=== PATIENT | female | born 1975 | race Caucasian/White ===

== ENCOUNTER 2017-04-29 07:22 | Inpatient (IN) | payer BC ==
[~2017-04-29] VITALS: Ht 160 cm; Wt 116.1 kg
[2017-04-29] VITALS (8 sets, daily range): BP systolic 111–159; BP diastolic 51–92
--- NOTE | ~2017-04-29 | PR ---
[place], [place] PROGRESS NOTE NAME: SAMMY DELUNA [facility] #: [id number] UNIT #: [id number] ROOM: 529 DOCTOR: FUNMI CONWAY MD,SHERRILL BIRTHDATE: [birth year] DOS: 05/02/2017 PULMONARY FOLLOWUP SUBJECTIVE: She has been noted with reduction of respiratory symptoms of coughing and wheezing. Denies symptoms of chest pain. OBJECTIVE: VITAL SIGNS: For the patient which were recorded show the temperature noted as normal, respiratory rate 20, heart rate 89, blood pressure 133/88. Pulse oxygen saturation on room air 92% saturation. HEENT: Examination shows no acute change. NECK: Supple. CARDIOVASCULAR: S1, S2 audible. LUNGS: Moderate decreased breath sounds without any wheezing or crackles. ABDOMEN: Soft, nontender. LABORATORY DATA: CBC: WBC count 20.4, hemoglobin 10.3, hematocrit 32.5, platelet count 413,000, 81% segmented neutrophils noted. BMP: BUN 27, creatinine was normal, glucose 174. Remaining electrolytes were normal. IMPRESSION: 1. Progressive resolution and improvement was noted with patient's acute exacerbation of bronchial asthma at this time. 2. Leukocytosis, most likely induced by the corticosteroids. PLAN OF TREATMENT: Consider home discharge whenever is necessary from the pulmonary standpoint. Tapering dose of prednisone could be used. Oral antibiotics to be given, short-acting bronchodilators, outpatient assessment was recommended after discharge from the hospital. SHERRILL CHOUDHARY MD CM:PNTRANS [id number] SHERRILL CONWAY MD 05/02/17 1136 interface
--- NOTE | ~2017-04-29 | CON ---
[place], [place] REPORT OF CONSULTATION NAME: SAMMY DELUNA [facility] #: [id number] UNIT #: [id number] ROOM: 529 DOCTOR: SHERRILL SOUSA MD BIRTHDATE: [birth year] DOS: 04/29/2017 REASON FOR CONSULTATION: Assess the patient for possibility of bronchial asthma. HISTORY OF PRESENT ILLNESS: A 41-year-old white female without any known pulmonary disease. The patient developed symptoms of increased chest congestion and coughing after cold few days ago. The patient's symptoms have been noted significant worsening related with excessive wheezing as well, which progressed gradually. The patient also noted cough with yellowish sputum expectoration, some of them blood-tinged because of excessive severe cough. She presented to the hospital and admitted to the hospital under hospitalist service on 04/29/2017 for the assessment of the current symptom. The patient denies any symptoms of hemoptysis. ____ was still noted as severe that has been improving at this time. There were no symptoms of chest pain. Hemoptysis noted, only minimal sputum expectoration seemed to be better at the present time. REVIEW OF SYSTEMS: CONSTITUTIONAL: Denies symptoms of fever or chills. EYES: Denies any burning, redness, or tenderness. EARS, NOSE, THROAT: Sore throat noted with some postnasal drainage, nasal congestion. CARDIOVASCULAR: Denies anginal pain, edema, pain of the lower extremities. GASTROINTESTINAL: Denies dysphagia, nausea, vomiting, diarrhea, abdominal pain, hematemesis, melena or hematochezia. SKIN: Denies lesions or rashes. GENITOURINARY: Denies dysuria, suprapubic pain, hematuria. MUSCULOSKELETAL: Denies acute joint pain, redness, or tenderness. CENTRAL NERVOUS SYSTEM: No dizziness, headache, or diplopia. Remaining systems were reviewed with the patient, they were noted all negative. PAST MEDICAL HISTORY: 1. Type 1 diabetes mellitus. 2. Essential hypertension. 3. Hyperlipidemia. 4. Hypothyroidism. 5. Morbid obesity. 6. Polycystic ovarian syndrome. 7. Past history of vertigo. SOCIAL HISTORY: The patient has one child. Denies any history of alcohol, tobacco or illicit drug use. PAST SURGICAL HISTORY: 1. . 2. Tubal ligation. 3. Tonsillectomy. FAMILY HISTORY: History of stroke in the mother and father and diabetes in the [place], [place] RE[facility]ATION [facility]: [id number] UNIT #: [id number] ROOM: 529 DOCTOR: FUNMI CONWAY MD,SHERRILL BIRTHDATE: [birth year] mother. HOME MEDICATIONS: 1. Use of Humalog insulin: 2. Synthroid. DRUG ALLERGIES: 1. Lipitor. 2. Keflex. 3. NovoLog. PHYSICAL EXAMINATION: GENERAL: This is a 41-year-old female who has been currently noted without any acute distress at this time. The patient's height was noted as 5 feet 3 inches, weight of 256 pounds, BMI 45.3. VITAL SIGNS: Show a normal temperature, respiratory rate 20-18, heart rate of 79-100, blood pressure 119/57-128/60. Pulse oxygen saturation noted on room air as 99% saturation. HEENT: Shows head was atraumatic. Eyes, nonicterus. NECK: Supple. Severe decreased posterior pharyngeal space. CARDIOVASCULAR: S1, S2 audible. LUNGS: Questionable wheezing, no crackles. ABDOMEN: Soft, obese, nontender. EXTREMITIES: Show chronic obesity without edema, clubbing, cyanosis. CENTRAL NERVOUS SYSTEM: Cranial nerves 2-12 intact. No focal deficits. MUSCULOSKELETAL: No deformities. SKIN: Showed no lesions or rashes. LABORATORY DATA: Chest x-ray on 2-view was noted without any acute pulmonary infiltration. CMP on 04/29/2017 glucose of 257, BUN and creatinine was normal. Remaining CMP was normal. ESR was noted 60 on admission as well. CBC on 04/29/2017, WBC count 13.6, hemoglobin 11.7, hematocrit 36.1, platelet count 402,000. Troponin on and were all noted normal, total of 4 sets. BMP of this morning, glucose of 188, BUN 24, creatinine was normal. Remaining BMP normal. CBC on 05/01/2017, WBC count 23.0, hemoglobin 9.8, hematocrit 31.0, platelet count was normal, 93% neutrophils and 5% lymphocytes. Bedside blood glucose yesterday were noted elevated 563. IMPRESSION: 1. The patient has been currently admitted to the hospital with acute bronchitis with possibility of acute asthmatic bronchitis related to that. 2. Severe hyperglycemia, history of diabetes mellitus, uncontrolled secondary to use of the high dose of corticosteroids. 3. History of chronic morbid obesity as well and multiple other medical problems as well noted in the history. PLAN OF TREATMENT: Reduce the Solu-Medrol dose to the lower dose at this time because the patient's symptoms are resolving. They were also resulting in resolution of the hyperglycemia. Continue medical management of the hyperglycemia with insulin coverage. Additional medical management. [place], [place] RE[facility]ATION [facility]: [id number] UNIT #: [id number] ROOM: 529 DOCTOR: FUNMI CONWAY MD,SHERRILL BIRTHDATE: [birth year] Continuation of the current antibiotics as well. Sputum for Gram stain cultures will be ordered as well. Further treatment changes will be done based on the progression of the illness. At this time, chest bronchodilator will be sufficient, no further intervention would be needed for possibility of bronchial asthma since the diagnosis needs to be confirmed if the symptom persistent with outpatient assessment. Supportive care therapy, plan of management and usual medical therapies. Thank you for allowing me to participate in the care of this patient. SHERRILL CHOUDHARY MD CM:CONSTR:REPORT OF CONSULTATION 1149 05/01/17 1442 interface
[~2017-04-29 07:22] MED LIST: ALBUTEROL0.09 MG/A2 IH; BACTRIM DS 8001 TA1 PO; BENTYL20 MG PO; BIAXIN500 MG PO; BIRTH CONTROL1 EAC1 PO; CIPRO250 MG PO; CRESTOR20 M1 PO; CRESTOR5 MG PO; CYCLOBENZAPRINE10 MG PO; DIFLUCAN150 MG PO; IBU800 MG PO; INSULIN PUMP; LISINOPRIL10 MG PO; LISINOPRIL5 MG PO; MACROBID100 M1 PO; MECLIZINE HCL25 M2 PO; MIDRIN (DURADR1 CAP PO; MOTRIN800 MG PO; OSTERA TABLET1 EACH PO; PHENERGAN25 M3 PO; PREDNISONE20 MG PO; PRILOSEC20 MG PO; PYRIDIUM200 M1 PO; SYNTHROID0.175 MG PO; SYNTHROID0.2 M1 PO; Synthroid,Lev200 MCG PO; VITAMIN D2000 IU PO; ZITHROMAX Z PA250 MG PO; Zofran4 MG PO
[2017-04-29] MEDS ORDERED: HUMALOG100 U/ML SC (08:10)
[2017-04-29 08:11] LABS: BASO # 0.1 10*3/uL (0.0-0.1); BASO % 0.4 % (0.0-1.0); EOS # 0.2 10*3/uL (0.0-0.4); EOS % 1.3 % (1.0-4.0); HEMATOCRIT 36.1 % (37.0-47.0); HEMOGLOBIN 11.7 g/dl (12.0-16.0); IG # 0.1 10*3/uL (0.0-0.1); LYMPH % 14.8 % (27.0-41.0); MEAN CELL VOLUME 81.7 fl (81.0-99.0); MEAN CORPUSCULAR HGB 26.5 pg (27.0-31.0); MEAN CORPUSCULAR HGB CONC 32.4 g/dl (33.0-37.0); MEAN PLATELET VOLUME 10.5 fl (9.6-12.3); MONO # 0.6 10*3/uL (0.1-1.0); MONO % 4.6 % (3.0-9.0); NEUT # 10.7 10*3/uL (2.3-7.9); NEUT % 78.5 % (47.0-73.0); PLATELET COUNT AUTOMATED 402 10*3/uL (130-400); RED BLOOD COUNT 4.42 10*6/uL (4.10-5.10); RED CELL DISTRI WIDTH 13.9 % (0-14.5); WHITE BLOOD COUNT 13.6 10*3/uL (4.8-10.8)
[2017-04-29 08:20] LABS: PROTHROMBIN TIME 10.6 SECONDS (9.0-12.4)
[2017-04-29 08:37] LABS: ALBUMIN 3.4 gm/dl (3.1-4.5); ALKALINE PHOSPHATASE 116 U/L (45-117); BILIRUBIN, TOTAL 0.3 mg/dl (0.2-1.0); BUN 10 mg/dl (7-24); CARBON DIOXIDE 26 mmol/L (21-32); CHLORIDE 99 mmol/L (98-107); CKMB < 0.5 ng/ml (0.5-3.6); CPK 71 U/L (26-192); EST GLOM FILT AFRICAN AMERICAN > 60 ml/min; GLUCOSE 257 mg/dL (65-99); MAGNESIUM 1.6 mg/dL (1.5-2.1); POTASSIUM 3.9 mmol/L (3.5-5.1); SGOT/AST 18 IU/L (3-35); SGPT/ALT 38 U/L (12-78); SODIUM 139 mmol/L (136-145); TOTAL PROTEIN 7.6 gm/dL (6.4-8.2); TROPONIN I < 0.015 ng/ml (<0.045)
[2017-04-30] VITALS: BP 107/47
[2017-04-30 06:21] LABS: BASO % 0.1 % (0.0-1.0); HEMATOCRIT 31.9 % (37.0-47.0); HEMOGLOBIN 10.4 g/dl (12.0-16.0); IG # 0.1 10*3/uL (0.0-0.1); LYMPH # 1.6 10*3/uL (1.3-4.4); LYMPH % 9.4 % (27.0-41.0); MEAN CELL VOLUME 82.9 fl (81.0-99.0); MEAN CORPUSCULAR HGB CONC 32.6 g/dl (33.0-37.0); MEAN PLATELET VOLUME 10.8 fl (9.6-12.3); MONO # 0.2 10*3/uL (0.1-1.0); MONO % 1.4 % (3.0-9.0); NEUT # 14.9 10*3/uL (2.3-7.9); NEUT % 88.5 % (47.0-73.0); PLATELET COUNT AUTOMATED 363 10*3/uL (130-400); RED BLOOD COUNT 3.85 10*6/uL (4.10-5.10); RED CELL DISTRI WIDTH 14.1 % (0-14.5); WHITE BLOOD COUNT 16.8 10*3/uL (4.8-10.8)
[2017-04-30 06:26] LABS: ALBUMIN 2.7 gm/dl (3.1-4.5); ALKALINE PHOSPHATASE 101 U/L (45-117); BILIRUBIN, TOTAL 0.2 mg/dl (0.2-1.0); BUN 15 mg/dl (7-24); CARBON DIOXIDE 24 mmol/L (21-32); CHLORIDE 102 mmol/L (98-107); CHOLESTEROL 232 mg/dL (<200); EST GLOM FILT AFRICAN AMERICAN > 60 ml/min; GLUCOSE 376 mg/dL (65-99); HDL CHOLESTEROL 47 mg/dl (40-60); LDL CHOLESTEROL 167 mg/dL (9-159); MAGNESIUM 1.7 mg/dL (1.5-2.1); PHOSPHOROUS 3.2 mg/dL (2.5-4.9); POTASSIUM 4.3 mmol/L (3.5-5.1); SGOT/AST 12 IU/L (3-35); SGPT/ALT 29 U/L (12-78); SODIUM 137 mmol/L (136-145); TOTAL PROTEIN 6.8 gm/dL (6.4-8.2); TRIGLYCERIDES 90 mg/dl (<150); VLDL CHOLESTEROL 18 mg/dL (6-40)
[2017-04-30 07:15] LABS: HEMOGLOBIN A1c 8.6 % (4.8-5.6)
[2017-04-30 08:00] VITALS: BP 108/48
[2017-04-30 08:06] LABS: FOLIC ACID 14.63 ng/mL (>5.38); VITAMIN D, 25-HYDROXY 12.6 ng/mL (30-100)
[2017-04-30 12:00] VITALS: BP 110/52
[2017-04-30 16:00] VITALS: BP 128/60
[2017-04-30 20:00] VITALS: BP 126/62
[2017-05-01 06:47] LABS: HEMOGLOBIN 9.8 g/dl (12.0-16.0); MEAN CELL VOLUME 83.3 fl (81.0-99.0); MEAN CORPUSCULAR HGB 26.3 pg (27.0-31.0); MEAN CORPUSCULAR HGB CONC 31.6 g/dl (33.0-37.0); MEAN PLATELET VOLUME 11.1 fl (9.6-12.3); PLATELET COUNT AUTOMATED 383 10*3/uL (130-400); RED BLOOD COUNT 3.72 10*6/uL (4.10-5.10); RED CELL DISTRI WIDTH 14.6 % (0-14.5)
[2017-05-01 07:10] LABS: BUN 24 mg/dl (7-24); CARBON DIOXIDE 24 mmol/L (21-32); CHLORIDE 104 mmol/L (98-107); EST GLOM FILT AFRICAN AMERICAN > 60 ml/min; GLUCOSE 188 mg/dL (65-99); POTASSIUM 4.3 mmol/L (3.5-5.1); SODIUM 139 mmol/L (136-145)
[2017-05-01 07:21] LABS: LYMPHOCYTE # 1.2 10*3/uL (1.3-4.4); MONOCYTE # 0.5 10*3/uL (0.1-1.0); NEUTROPHIL # 21.4 10*3/uL (2.3-7.9); NEUTROPHILS 93 % (47-73); PLATELET SUFFICIENCY NORMAL (NORMAL); TOTAL CELLS COUNTED 100 #CELLS
[2017-05-01 08:00] VITALS: BP 119/57
[2017-05-01 12:00] VITALS: BP 131/63
[2017-05-01 16:00] VITALS: BP 127/59
[2017-05-01 20:00] VITALS: BP 122/56
[2017-05-02] VITALS: BP 126/61; BP 92/51
[2017-05-02 05:58] LABS: HEMATOCRIT 32.5 % (37.0-47.0); HEMOGLOBIN 10.3 g/dl (12.0-16.0); MEAN CELL VOLUME 83.8 fl (81.0-99.0); MEAN CORPUSCULAR HGB 26.5 pg (27.0-31.0); MEAN CORPUSCULAR HGB CONC 31.7 g/dl (33.0-37.0); MEAN PLATELET VOLUME 10.9 fl (9.6-12.3); PLATELET COUNT AUTOMATED 413 10*3/uL (130-400); RED BLOOD COUNT 3.88 10*6/uL (4.10-5.10); RED CELL DISTRI WIDTH 14.6 % (0-14.5); WHITE BLOOD COUNT 20.4 10*3/uL (4.8-10.8)
[2017-05-02 06:06] LABS: BUN 27 mg/dl (7-24); CARBON DIOXIDE 27 mmol/L (21-32); CHLORIDE 103 mmol/L (98-107); EST GLOM FILT AFRICAN AMERICAN > 60 ml/min; GLUCOSE 174 mg/dL (65-99); POTASSIUM 4.5 mmol/L (3.5-5.1); SODIUM 142 mmol/L (136-145)
[2017-05-02 07:17] LABS: LYMPHOCYTE # 3.1 10*3/uL (1.3-4.4); MONOCYTE # 0.6 10*3/uL (0.1-1.0); MYELOCYTES 1 % (0-0); NEUTROPHIL # 16.5 10*3/uL (2.3-7.9); NEUTROPHILS 81 % (47-73); PLATELET SUFFICIENCY HIGH (NORMAL); TOTAL CELLS COUNTED 100 #CELLS
[2017-05-02 08:00] VITALS: BP 133/88
[2017-05-02 12:00] VITALS: BP 120/58
[2017-05-02] MEDS ORDERED: PREDNISONE10 MG PO (14:27)
[2017-05-02] MEDS ORDERED: PROAIR HFA8.5 GM INH (14:27)
[2017-05-02] MEDS ORDERED: LEVAQUIN500 M2 PO (14:27)
== END 2017-05-02 16:08 | disposition home or self-care (01) | DRG 871 ==
LOC: ED → EDHOLD 09:13 → 5E 09:18
PROVIDERS: Emergency Medicine; Hospitalist
DX: A41.9 Sepsis, unspecified organism (principal); J18.9 Pneumonia, unspecified organism; E43 Unspecified severe protein-calorie malnutrition; E10.65 Type 1 diabetes mellitus with hyperglycemia; J45.902 Unspecified asthma with status asthmaticus; Z68.41 Body mass index [BMI] 40.0-44.9, adult; I10 Essential (primary) hypertension; E03.9 Hypothyroidism, unspecified; E28.2 Polycystic ovarian syndrome; K59.00 Constipation, unspecified; E78.2 Mixed hyperlipidemia; E66.01 Morbid (severe) obesity due to excess calories; R42 Dizziness and giddiness; R06.01 Orthopnea; J20.9 Acute bronchitis, unspecified; T38.0X5A Adverse effect of glucocorticoids and synthetic analogues, initial encounter; E55.9 Vitamin D deficiency, unspecified; Z82.3 Family history of stroke; Z83.3 Family history of diabetes mellitus; Z79.899 Other long term (current) drug therapy; Z98.51 Tubal ligation status; Z88.8 Allergy status to other drugs, medicaments and biological substances; Z88.1 Allergy status to other antibiotic agents; Z79.4 Long term (current) use of insulin; Y92.89 Other specified places as the place of occurrence of the external cause

== ENCOUNTER 2018-10-05 18:22 | Emergency (ER) | payer SELFPAY ==
[~2018-10-05] VITALS: Ht 160 cm; Wt 108.9 kg
[~2018-10-05 18:22] MED LIST changes: +HUMALOG100 U/ML SC; +LEVAQUIN500 M2 PO; +PREDNISONE10 MG PO; +PROAIR HFA8.5 GM INH
[2018-10-05 18:24] VITALS: BP 150/73
[2018-10-05 18:40] LABS: BILIRUBIN NEGATIVE (NEGATIVE); BLOOD NEGATIVE (NEGATIVE); CLARITY SL CLOUDY (CLEAR); COLOR YELLOW (YELLOW); GLUCOSE 2+ (NEGATIVE); KETONE TRACE (NEGATIVE); LEUKO ESTERASE NEGATIVE (NEGATIVE); NITRITE NEGATIVE (NEGATIVE); PH 5.5 (5.0-9.0); SPECIFIC GRAVITY 1.025 (1.005-1.030); UROBILINOGEN 0.2 E.U./dl (0.2-1.0)
[2018-10-05 18:47] LABS: RBC 0-2 rbc/hpf (0-2)
[2018-10-05 19:57] LABS: BASO % 0.4 % (0.0-1.0); EOS # 0.1 10*3/uL (0.0-0.4); EOS % 1.2 % (1.0-4.0); HEMATOCRIT 34.7 % (37.0-47.0); HEMOGLOBIN 11.1 g/dl (12.0-16.0); LYMPH # 2.4 10*3/uL (1.3-4.4); LYMPH % 23.2 % (27.0-41.0); MEAN CELL VOLUME 82.4 fl (81.0-99.0); MEAN CORPUSCULAR HGB 26.4 pg (27.0-31.0); MEAN PLATELET VOLUME 10.2 fl (9.6-12.3); MONO # 0.7 10*3/uL (0.1-1.0); MONO % 6.6 % (3.0-9.0); NEUT # 7.1 10*3/uL (2.3-7.9); NEUT % 68.2 % (47.0-73.0); PLATELET COUNT AUTOMATED 402 10*3/uL (130-400); RED BLOOD COUNT 4.21 10*6/uL (4.10-5.10); RED CELL DISTRI WIDTH 13.8 % (0-14.5); WHITE BLOOD COUNT 10.4 10*3/uL (4.8-10.8)
[2018-10-05 20:19] LABS: ALKALINE PHOSPHATASE 115 U/L (45-117); BUN 12 mg/dl (7-24); CHLORIDE 102 mmol/L (98-107); CREATININE 0.92 mg/dL (0.55-1.02); LIPASE 67 U/L (73-393); POTASSIUM 4.3 mmol/L (3.5-5.1); SGOT/AST 15 IU/L (3-35); SGPT/ALT 30 U/L (12-78); SODIUM 135 mmol/L (136-145); TOTAL PROTEIN 7.1 gm/dL (6.4-8.2)
[2018-10-05] MEDS ORDERED: CIPRO500 MG PO (20:41)
== END 2018-10-05 21:00 | disposition home or self-care (01) ==
LOC: ED 18:22
PROVIDERS: Physician Assistant
DX: R30.0 Dysuria (principal); E10.65 Type 1 diabetes mellitus with hyperglycemia; Z88.8 Allergy status to other drugs, medicaments and biological substances; Z88.1 Allergy status to other antibiotic agents; Z79.899 Other long term (current) drug therapy; Z79.4 Long term (current) use of insulin; Z98.890 Other specified postprocedural states

== ENCOUNTER → 2019-09-27 | Outpatient (CLI) | payer OTHER ==
[~2019-09-27] MED LIST changes: +CIPRO500 MG PO
== END | disposition home or self-care (01) ==
LOC: RAD 14:59
DX: M25.512 Pain in left shoulder (principal)

== ENCOUNTER 2019-12-28 14:53 | Emergency (ER) | payer OTHER ==
[~2019-12-28] VITALS: Ht 160 cm; Wt 108.9 kg
[2019-12-28 15:06] VITALS: BP 143/65
[2019-12-28 15:36] LABS: BILIRUBIN 3+ (NEGATIVE); CLARITY CLOUDY (CLEAR); COLOR ORANGE (YELLOW); GLUCOSE 3+ (NEGATIVE); KETONE 3+ (NEGATIVE)
[2019-12-28 15:37] LABS: BLOOD 1+ (NEGATIVE); LEUKO ESTERASE 3+ (NEGATIVE); NITRITE POSITIVE (NEGATIVE); SPECIFIC GRAVITY 1.025 (1.005-1.030)
[2019-12-28 15:39] LABS: BACTERIA 4+; WBC TNTC wbc/hpf (0-5)
[2019-12-28] MEDS ORDERED: SEPTDS PO (15:51)
[2019-12-28] MEDS ORDERED: PYRIDIUM200 M1 PO (15:51)
== END 2019-12-28 15:56 | disposition home or self-care (01) ==
LOC: ED 14:53
PROVIDERS: Nurse Practitioner Family
DX: N39.0 Urinary tract infection, site not specified (principal); E11.9 Type 2 diabetes mellitus without complications; I10 Essential (primary) hypertension; Z88.8 Allergy status to other drugs, medicaments and biological substances; Z79.899 Other long term (current) drug therapy

== ENCOUNTER 2021-01-15 15:19 | Emergency (ER) | payer OTHER ==
[~2021-01-15] VITALS: Wt 111.1 kg
[~2021-01-15 15:19] MED LIST changes: +LEVOTHYROXINE200 MC2 PO; +SEPTDS PO
[2021-01-15 15:24] VITALS: BP 145/55
[2021-01-15 15:45] LABS: BILIRUBIN 1+ (Negative); BLOOD 2+ (Negative); CLARITY Turbid (Clear); COLOR Orange (Yellow); GLUCOSE 3+ (Negative); KETONE Negative (Negative); LEUKO ESTERASE 2+ (Negative); NITRITE Positive (Negative); SPECIFIC GRAVITY 1.025 (1.001-1.030)
[2021-01-15 16:00] LABS: BACTERIA 4+; WBC TNTC wbc/hpf (0-5)
[2021-01-15] MEDS ORDERED: MACROBID100 M1 PO (16:03)
== END 2021-01-15 16:11 | disposition home or self-care (01) ==
LOC: ED 15:19
PROVIDERS: Physician Assistant
DX: N39.0 Urinary tract infection, site not specified (principal); E11.9 Type 2 diabetes mellitus without complications; I10 Essential (primary) hypertension; E78.00 Pure hypercholesterolemia, unspecified; Z88.8 Allergy status to other drugs, medicaments and biological substances; Z79.4 Long term (current) use of insulin; Z98.51 Tubal ligation status; Z98.890 Other specified postprocedural states

== ENCOUNTER 2021-11-19 14:49 | Emergency (ER) | payer OTHER ==
[~2021-11-19] VITALS: Ht 160 cm; Wt 113.4 kg
[2021-11-19 14:59] VITALS: BP 131/63
[2021-11-19 15:52] LABS: BILIRUBIN 1+ (Negative); BLOOD 1+ (Negative); CLARITY Turbid (Clear); COLOR Dark Yellow (Yellow); GLUCOSE Trace (Negative); KETONE 1+ (Negative); LEUKO ESTERASE 3+ (Negative); NITRITE Positive (Negative); PH 5.5 (4.5-8.0); SPECIFIC GRAVITY 1.025 (1.001-1.030)
[2021-11-19 15:55] LABS: BACTERIA 3+; MUCOUS TRACE; WBC TNTC wbc/hpf (0-5)
[2021-11-19] MEDS ORDERED: MACROBID100 M1 PO (17:01)
== END 2021-11-19 17:28 | disposition home or self-care (01) ==
LOC: ED 14:49
PROVIDERS: Emergency Medicine
DX: N39.0 Urinary tract infection, site not specified (principal); Z88.1 Allergy status to other antibiotic agents; Z88.8 Allergy status to other drugs, medicaments and biological substances; Z79.899 Other long term (current) drug therapy

== ENCOUNTER 2022-08-02 09:00 | Emergency (ER) | payer OTHER ==
[2022-08-02 09:02] VITALS: BP 143/54
[2022-08-02 10:09] LABS: BASO # 0.1 10*3/uL (0.0-0.1); BASO % 0.4 % (0.0-1.0); EOS # 0.2 10*3/uL (0.0-0.4); EOS % 1.4 % (1.0-4.0); HEMATOCRIT 37.4 % (37.0-47.0); LYMPH # 2.1 10*3/uL (1.3-4.4); LYMPH % 15.6 % (27.0-41.0); MEAN CELL VOLUME 82.7 fl (81.0-99.0); MEAN CORPUSCULAR HGB 26.5 pg (27.0-31.0); MEAN CORPUSCULAR HGB CONC 32.1 g/dl (33.0-37.0); MEAN PLATELET VOLUME 10.6 fl (9.6-12.3); MONO # 0.9 10*3/uL (0.1-1.0); MONO % 6.9 % (3.0-9.0); NEUT % 75.4 % (47.0-73.0); PLATELET COUNT AUTOMATED 407 10*3/uL (130-400); RED BLOOD COUNT 4.52 10*6/uL (4.10-5.10); RED CELL DISTRI WIDTH 13.5 % (0-14.5); WHITE BLOOD COUNT 13.2 10*3/uL (4.8-10.8)
[2022-08-02 10:42] LABS: ACT PARTIAL THROMBO TIME 29.2 SECONDS (20.0-32.1)
[2022-08-02 10:51] LABS: BUN 11 mg/dl (7-24); CHLORIDE 105 mmol/L (98-107); CREATININE 0.81 mg/dL (0.55-1.02); LIPASE 45 U/L (73-393); POTASSIUM 4.5 mmol/L (3.5-5.1); SGOT/AST 45 IU/L (3-35); SGPT/ALT 55 U/L (12-78); SODIUM 136 mmol/L (136-145); TOTAL PROTEIN 7.2 gm/dL (6.4-8.2)
[2022-08-02 10:52] LABS: ALKALINE PHOSPHATASE 116 U/L (45-117)
[2022-08-02] MEDS ORDERED: PHENERGAN25 M3 PO (11:27)
[2022-08-02] MEDS ORDERED: ZITHROMAX250 MG PO (11:27)
== END 2022-08-02 11:25 | disposition home or self-care (01) ==
LOC: ED 09:00
PROVIDERS: Emergency Medicine
DX: J20.9 Acute bronchitis, unspecified (principal); Z20.822 Contact with and (suspected) exposure to COVID-19; R11.0 Nausea; Z88.8 Allergy status to other drugs, medicaments and biological substances; Z88.1 Allergy status to other antibiotic agents; Z79.2 Long term (current) use of antibiotics; Z79.4 Long term (current) use of insulin; Z79.899 Other long term (current) drug therapy; Z98.890 Other specified postprocedural states; Z98.51 Tubal ligation status; Z90.89 Acquired absence of other organs; Z96.22 Myringotomy tube(s) status

== ENCOUNTER 2022-08-09 16:52 | Emergency (ER) | payer OTHER ==
[~2022-08-09] VITALS: Ht 160 cm; Wt 110.2 kg
[~2022-08-09 16:52] MED LIST changes: +ZITHROMAX250 MG PO
[2022-08-09 17:15] VITALS: BP 146/82
[2022-08-09 18:19] LABS: BASO # 0.1 10*3/uL (0.0-0.1); BASO % 0.6 % (0.0-1.0); EOS # 0.2 10*3/uL (0.0-0.4); EOS % 1.5 % (1.0-4.0); HEMATOCRIT 37.6 % (37.0-47.0); LYMPH # 2.7 10*3/uL (1.3-4.4); LYMPH % 23.3 % (27.0-41.0); MEAN CELL VOLUME 84.1 fl (81.0-99.0); MEAN CORPUSCULAR HGB 26.6 pg (27.0-31.0); MEAN CORPUSCULAR HGB CONC 31.6 g/dl (33.0-37.0); MEAN PLATELET VOLUME 9.9 fl (9.6-12.3); MONO # 0.7 10*3/uL (0.1-1.0); MONO % 5.7 % (3.0-9.0); NEUT # 7.9 10*3/uL (2.3-7.9); NEUT % 67.8 % (47.0-73.0); PLATELET COUNT AUTOMATED 526 10*3/uL (130-400); RED BLOOD COUNT 4.47 10*6/uL (4.10-5.10); RED CELL DISTRI WIDTH 13.4 % (0-14.5); WHITE BLOOD COUNT 11.7 10*3/uL (4.8-10.8)
[2022-08-09 18:34] LABS: ALKALINE PHOSPHATASE 136 U/L (45-117); BUN 15 mg/dl (7-24); CHLORIDE 102 mmol/L (98-107); POTASSIUM 4.1 mmol/L (3.5-5.1); SGOT/AST 37 IU/L (3-35); SGPT/ALT 57 U/L (12-78); SODIUM 133 mmol/L (136-145); TOTAL PROTEIN 7.6 gm/dL (6.4-8.2)
[2022-08-09 18:48] LABS: BILIRUBIN 1+ (Negative); BLOOD Negative (Negative); CLARITY Turbid (Clear); COLOR Dark Yellow (Yellow); GLUCOSE 3+ (Negative); KETONE Trace (Negative); LEUKO ESTERASE Negative (Negative); NITRITE Negative (Negative); SPECIFIC GRAVITY >= 1.030 (1.001-1.030)
[2022-08-09 18:57] LABS: BACTERIA 2+; EPITHELIAL CELLS TNTC
== END 2022-08-09 19:46 | disposition home or self-care (01) ==
LOC: ED 16:52
PROVIDERS: Physician Assistant
DX: J40 Bronchitis, not specified as acute or chronic (principal); E10.9 Type 1 diabetes mellitus without complications; I10 Essential (primary) hypertension; Z98.51 Tubal ligation status; Z90.89 Acquired absence of other organs; Z98.890 Other specified postprocedural states; Z79.899 Other long term (current) drug therapy; Z88.1 Allergy status to other antibiotic agents; Z88.8 Allergy status to other drugs, medicaments and biological substances

== ENCOUNTER 2022-12-07 20:16 | Emergency (ER) | payer OTHER ==
[~2022-12-07] VITALS: Ht 160 cm; Wt 108.0 kg
[2022-12-07] MEDS ORDERED: CLINDAMYCIN HC300 MG PO ×2 (20:51→20:53)
[2022-12-07 21:04] VITALS: BP 178/88
== END 2022-12-07 21:14 | disposition home or self-care (01) ==
LOC: ED 20:16
DX: L02.811 Cutaneous abscess of head [any part, except face] (principal); Z88.8 Allergy status to other drugs, medicaments and biological substances; Z88.1 Allergy status to other antibiotic agents; Z90.89 Acquired absence of other organs; Z98.51 Tubal ligation status; Z98.890 Other specified postprocedural states

== ENCOUNTER 2023-07-10 21:58 | Emergency (ER) | payer OTHER ==
[~2023-07-10] VITALS: Ht 160 cm; Wt 106.6 kg
[~2023-07-10 21:58] MED LIST changes: +CLINDAMYCIN HC300 MG PO; +PYRIDIUM100 MG PO
[2023-07-10 22:00] VITALS: BP 176/94
[2023-07-10 23:24] LABS: ACT PARTIAL THROMBO TIME 25.4 SECONDS (20.0-32.1)
[2023-07-10 23:38] LABS: ALKALINE PHOSPHATASE 93 U/L (46-116); BUN 13 mg/dl (9-23); CHLORIDE 101 mmol/L (98-107); LIPASE 27 U/L (12-53); POTASSIUM 3.9 mmol/L (3.4-5.1); SGPT/ALT 17 U/L (10-49); TOTAL PROTEIN 7.3 gm/dL (6.0-8.0)
[2023-07-11] LABS: BASO % 0.4 % (0.0-1.0); EOS # 0.2 10*3/uL (0.0-0.4); EOS % 1.5 % (1.0-4.0); HEMATOCRIT 38.8 % (37.0-47.0); LYMPH # 3.8 10*3/uL (1.3-4.4); LYMPH % 34.5 % (27.0-41.0); MEAN CORPUSCULAR HGB 26.4 pg (27.0-31.0); MEAN PLATELET VOLUME 10.3 fl (9.6-12.3); MONO # 0.7 10*3/uL (0.1-1.0); MONO % 6.5 % (3.0-9.0); NEUT # 6.2 10*3/uL (2.3-7.9); NEUT % 56.7 % (47.0-73.0); PLATELET COUNT AUTOMATED 364 10*3/uL (130-400); RED BLOOD COUNT 4.85 10*6/uL (4.10-5.10); RED CELL DISTRI WIDTH 13.8 % (0-14.5)
[2023-07-11] MEDS ORDERED: MELOXICAM15 MG PO (01:03)
== END 2023-07-11 01:22 | disposition home or self-care (01) ==
LOC: ED 21:58
PROVIDERS: Internal Medicine
DX: M94.0 Chondrocostal junction syndrome [Tietze] (principal); E11.9 Type 2 diabetes mellitus without complications; Z79.4 Long term (current) use of insulin; I10 Essential (primary) hypertension; E78.00 Pure hypercholesterolemia, unspecified; Z96.41 Presence of insulin pump (external) (internal); Z88.1 Allergy status to other antibiotic agents; Z88.8 Allergy status to other drugs, medicaments and biological substances; Z98.51 Tubal ligation status; Z90.89 Acquired absence of other organs; Z98.890 Other specified postprocedural states

== ENCOUNTER 2023-08-29 06:37 | Emergency (ER) | payer OTHER ==
[~2023-08-29] VITALS: Ht 160 cm; Wt 106.6 kg
[~2023-08-29 06:37] MED LIST changes: +MELOXICAM15 MG PO
[2023-08-29 06:45] VITALS: BP 155/57
[2023-08-29 07:42] LABS: BASO # 0.1 10*3/uL (0.0-0.1); BASO % 0.6 % (0.0-1.0); EOS # 0.2 10*3/uL (0.0-0.4); EOS % 2.4 % (1.0-4.0); HEMATOCRIT 39.3 % (37.0-47.0); LYMPH # 2.5 10*3/uL (1.3-4.4); LYMPH % 29.5 % (27.0-41.0); MEAN CELL VOLUME 86.8 fl (81.0-99.0); MEAN CORPUSCULAR HGB 26.5 pg (27.0-31.0); MEAN CORPUSCULAR HGB CONC 30.5 g/dl (33.0-37.0); MEAN PLATELET VOLUME 10.3 fl (9.6-12.3); MONO # 0.8 10*3/uL (0.1-1.0); MONO % 8.8 % (3.0-9.0); NEUT % 58.5 % (47.0-73.0); PLATELET COUNT AUTOMATED 441 10*3/uL (130-400); RED BLOOD COUNT 4.53 10*6/uL (4.10-5.10); RED CELL DISTRI WIDTH 14.4 % (0-14.5); WHITE BLOOD COUNT 8.5 10*3/uL (4.8-10.8)
[2023-08-29 08:08] LABS: ALKALINE PHOSPHATASE 81 U/L (46-116); BUN 11 mg/dl (9-23); CHLORIDE 105 mmol/L (98-107); LIPASE 26 U/L (12-53); SGPT/ALT 17 U/L (10-49)
[2023-08-29 08:13] LABS: POTASSIUM 5.4 mmol/L (3.4-5.1)
[2023-08-29 09:38] LABS: BILIRUBIN Negative (Negative); BLOOD 2+ (Negative); CLARITY Clear (Clear); COLOR Yellow (Yellow); GLUCOSE Negative (Negative); KETONE Negative (Negative); LEUKO ESTERASE 1+ (Negative); NITRITE Negative (Negative)
[2023-08-29 09:50] LABS: BACTERIA 2+; RBC 31-40 rbc/hpf (0-2); WBC 31-40 wbc/hpf (0-5)
[2023-08-29] MEDS ORDERED: TRAMADOL HCL50 MG PO (10:02)
[2023-08-29] MEDS ORDERED: CIPRO500 MG PO (10:02)
== END 2023-08-29 10:12 | disposition home or self-care (01) ==
LOC: ED 06:37
PROVIDERS: Emergency Medicine
DX: N12 Tubulo-interstitial nephritis, not specified as acute or chronic (principal); E11.9 Type 2 diabetes mellitus without complications; Z79.4 Long term (current) use of insulin; I10 Essential (primary) hypertension; E78.00 Pure hypercholesterolemia, unspecified; Z96.41 Presence of insulin pump (external) (internal); Z88.1 Allergy status to other antibiotic agents; Z88.8 Allergy status to other drugs, medicaments and biological substances; Z98.51 Tubal ligation status; Z90.89 Acquired absence of other organs; Z98.890 Other specified postprocedural states

== ENCOUNTER 2024-01-16 08:58 | Emergency (ER) | payer BC ==
[~2024-01-16] VITALS: Ht 160 cm; Wt 111.1 kg
[~2024-01-16 08:58] MED LIST changes: +TRAMADOL HCL50 MG PO
[2024-01-16 09:03] VITALS: BP 146/75
[2024-01-16] MEDS ORDERED: SODIUM CHLORIDE 0.9% 1,000 ML IV ONE (09:05)
[2024-01-16 09:36] LABS: BASO % 0.4 % (0.0-1.0); EOS # 0.1 10*3/uL (0.0-0.4); EOS % 1.4 % (1.0-4.0); HEMATOCRIT 39.3 % (37.0-47.0); LYMPH # 2.8 10*3/uL (1.3-4.4); LYMPH % 28.3 % (27.0-41.0); MEAN CELL VOLUME 80.2 fl (81.0-99.0); MEAN CORPUSCULAR HGB 25.7 pg (27.0-31.0); MEAN CORPUSCULAR HGB CONC 32.1 g/dl (33.0-37.0); MEAN PLATELET VOLUME 10.2 fl (9.6-12.3); MONO # 0.6 10*3/uL (0.1-1.0); MONO % 6.4 % (3.0-9.0); NEUT # 6.2 10*3/uL (2.3-7.9); NEUT % 63.1 % (47.0-73.0); PLATELET COUNT AUTOMATED 368 10*3/uL (130-400); WHITE BLOOD COUNT 9.8 10*3/uL (4.8-10.8)
[2024-01-16] MEDS ORDERED: Ondansetron Hydrochloride 4 MG/2 ML VIAL IV ONE (09:40)
[2024-01-16 09:57] LABS: ALKALINE PHOSPHATASE 93 U/L (46-116); BUN 12 mg/dl (9-23); CHLORIDE 98 mmol/L (98-107); POTASSIUM 3.7 mmol/L (3.4-5.1); SGPT/ALT 33 U/L (5-49); TOTAL PROTEIN 6.9 gm/dL (6.0-8.0)
== END 2024-01-16 11:16 | disposition home or self-care (01) ==
LOC: ED 08:58
PROVIDERS: Emergency Medicine
DX: I95.1 Orthostatic hypotension (principal); M79.671 Pain in right foot; I10 Essential (primary) hypertension; E10.9 Type 1 diabetes mellitus without complications; E78.5 Hyperlipidemia, unspecified; E78.00 Pure hypercholesterolemia, unspecified; Z88.8 Allergy status to other drugs, medicaments and biological substances; Z88.1 Allergy status to other antibiotic agents; Z90.89 Acquired absence of other organs; Z98.51 Tubal ligation status; Z98.890 Other specified postprocedural states

== ENCOUNTER 2024-05-07 12:10 | Emergency (ER) | payer OTHER ==
[~2024-05-07] VITALS: Ht 160 cm; Wt 105.2 kg
[2024-05-07 12:24] VITALS: BP 150/68
== END 2024-05-07 13:08 | disposition home or self-care (01) ==
LOC: ED 12:10
DX: Z76.0 Encounter for issue of repeat prescription (principal); I10 Essential (primary) hypertension; E78.5 Hyperlipidemia, unspecified; E10.65 Type 1 diabetes mellitus with hyperglycemia; E78.00 Pure hypercholesterolemia, unspecified; Z79.4 Long term (current) use of insulin; Z88.8 Allergy status to other drugs, medicaments and biological substances; Z88.1 Allergy status to other antibiotic agents; Z90.89 Acquired absence of other organs; Z98.51 Tubal ligation status; Z98.890 Other specified postprocedural states

== ENCOUNTER → 2024-05-20 | Outpatient (CLI) | payer OTHER ==
[2024-05-20 12:47] LABS: BASO % 0.5 % (0.0-1.0); EOS # 0.2 10*3/uL (0.0-0.4); EOS % 2.1 % (1.0-4.0); LYMPH # 2.4 10*3/uL (1.3-4.4); LYMPH % 31.7 % (27.0-41.0); MEAN CELL VOLUME 83.2 fl (81.0-99.0); MEAN CORPUSCULAR HGB CONC 31.3 g/dl (33.0-37.0); MEAN PLATELET VOLUME 10.2 fl (9.6-12.3); MONO # 0.5 10*3/uL (0.1-1.0); NEUT # 4.4 10*3/uL (2.3-7.9); NEUT % 58.3 % (47.0-73.0); PLATELET COUNT AUTOMATED 393 10*3/uL (130-400); RED BLOOD COUNT 4.57 10*6/uL (4.10-5.10); RED CELL DISTRI WIDTH 13.6 % (0-14.5); WHITE BLOOD COUNT 7.6 10*3/uL (4.8-10.8)
[2024-05-20 13:50] LABS: ALKALINE PHOSPHATASE 94 U/L (46-116); BUN 10 mg/dl (9-23); CHLORIDE 105 mmol/L (98-107); CHOLESTEROL 237 mg/dL (<200); FREE T4 1.55 ng/dl (0.89-1.76); LDL CHOLESTEROL 163 mg/dL (9-159); SGPT/ALT 22 U/L (5-49); TRIGLYCERIDES 162 mg/dl (<150)
== END | disposition home or self-care (01) ==
LOC: LAB 12:21
PROVIDERS: ATTEND Nurse Practitioner Family
DX: I10 Essential (primary) hypertension (principal); E03.9 Hypothyroidism, unspecified; E10.65 Type 1 diabetes mellitus with hyperglycemia

== ENCOUNTER → 2024-05-26 | Outpatient (CLI) | payer OTHER | END | disposition home or self-care (01) | LOC: US 09:00 | PROVIDERS: ATTEND Nurse Practitioner Family | DX: I70.202 Unspecified atherosclerosis of native arteries of extremities, left leg (principal); R09.89 Other specified symptoms and signs involving the circulatory and respiratory systems ==

== ENCOUNTER 2024-06-02 11:29 | Emergency (ER) | payer OTHER ==
[~2024-06-02] VITALS: Wt 105.2 kg
[2024-06-02 11:52] VITALS: BP 132/63
[2024-06-02] MEDS ORDERED: IBUPROFEN600 MG PO (13:46)
[2024-06-02] MEDS ORDERED: AMOXICILLIN500 M2 PO (13:46)
== END 2024-06-02 13:49 | disposition home or self-care (01) ==
LOC: ED 11:29
DX: J02.9 Acute pharyngitis, unspecified (principal); Z20.822 Contact with and (suspected) exposure to COVID-19; R05.9 Cough, unspecified; R53.81 Other malaise; Z88.8 Allergy status to other drugs, medicaments and biological substances; Z88.1 Allergy status to other antibiotic agents; Z79.899 Other long term (current) drug therapy; Z79.2 Long term (current) use of antibiotics; Z98.51 Tubal ligation status; Z98.890 Other specified postprocedural states; Z90.89 Acquired absence of other organs

== ENCOUNTER 2024-08-19 05:38 | Inpatient (IN) | payer OTHER ==
[~2024-08-19] VITALS: Ht 160 cm; Wt 105.2 kg
[~2024-08-19 05:38] MED LIST changes: +AMOXICILLIN500 M2 PO; -HUMALOG100 U/ML SC; +HUMALOG100 UNIT/2 SC; +IBUPROFEN600 MG PO
[2024-08-19 05:50] VITALS: BP 130/64
[2024-08-19] MEDS ORDERED: LEVOFLOXACIN 150 ML IV ONE (06:35)
[2024-08-19 06:36] LABS: BASO % 0.2 % (0.0-1.0); EOS # 0.1 10*3/uL (0.0-0.4); EOS % 1.2 % (1.0-4.0); HEMATOCRIT 35.6 % (37.0-47.0); LYMPH # 1.2 10*3/uL (1.3-4.4); LYMPH % 19.6 % (27.0-41.0); MEAN CELL VOLUME 78.9 fl (81.0-99.0); MEAN CORPUSCULAR HGB 25.5 pg (27.0-31.0); MEAN CORPUSCULAR HGB CONC 32.3 g/dl (33.0-37.0); MEAN PLATELET VOLUME 10.4 fl (9.6-12.3); MONO # 0.3 10*3/uL (0.1-1.0); MONO % 5.7 % (3.0-9.0); NEUT # 4.4 10*3/uL (2.3-7.9); NEUT % 73.1 % (47.0-73.0); PLATELET COUNT AUTOMATED 308 10*3/uL (130-400); RED BLOOD COUNT 4.51 10*6/uL (4.10-5.10); RED CELL DISTRI WIDTH 13.8 % (0-14.5)
[2024-08-19] MEDS ORDERED: Dexamethasone Sodium Phospha 4 MG/ML VIAL IV ONE (06:40)
[2024-08-19 06:55] LABS: BUN 9 mg/dl (9-23); CHLORIDE 102 mmol/L (98-107); POTASSIUM 3.9 mmol/L (3.4-5.1)
[2024-08-19] MEDS ORDERED: Albuterol Sulf/Ipratropium 3 ML VIAL NEB ONE (07:45)
[2024-08-19 08:27] VITALS: BP 142/65
[2024-08-19] MEDS ORDERED: LISINOPRIL10 M1 PO (08:31)
[2024-08-19] MEDS ORDERED: ROSUVASTATIN CA20 MG PO (08:32)
[2024-08-19] MEDS ORDERED: ACETAMINOPHEN 325 MG TAB PO ONE (09:15)
[2024-08-19] MEDS ORDERED: ACETAMINOPHEN 325 MG TAB PO PRN (09:25)
[2024-08-19] MEDS ORDERED: BISACODYL 5 MG TAB PO PRN (09:25)
[2024-08-19] MEDS ORDERED: DEXTROSE 10 % IN WATER 250 ML IV PRN (09:25)
[2024-08-19] MEDS ORDERED: Ondansetron Hydrochloride 4 MG/2 ML VIAL IV PRN (09:25)
[2024-08-19] MEDS ORDERED: INSULIN PUMP (PT'S PUMP FROM HOME) SC SCH (09:45)
[2024-08-19] MEDS ORDERED: Rosuvastatin Calcium 10 MG TABLET PO SCH (10:00)
[2024-08-19] MEDS ORDERED: Enoxaparin Sodium 40 MG/0.4 ML SYR SC SCH (10:00)
[2024-08-19] MEDS ORDERED: LISINOPRIL 10 MG TAB PO SCH (10:00)
[2024-08-19] MEDS ORDERED: Levothyroxine Sodium 200 MCG TAB PO SCH (10:00)
[2024-08-19] MEDS ORDERED: SODIUM CHLORIDE 0.9% 1,000 ML IV ONE (10:25)
[2024-08-19] MEDS ORDERED: Albuterol Sulf/Ipratropium 3 ML VIAL NEB SCH (10:38)
[2024-08-19 13:04] VITALS: BP 156/61
[2024-08-19 13:15] VITALS: BP 144/59
[2024-08-19 16:00] VITALS: BP 185/69
[2024-08-19 20:00] VITALS: BP 136/52
[2024-08-20] VITALS: BP 132/52
[2024-08-20 06:20] LABS: BASO % 0.2 % (0.0-1.0); HEMATOCRIT 36.4 % (37.0-47.0); LYMPH # 1.3 10*3/uL (1.3-4.4); LYMPH % 20.7 % (27.0-41.0); MEAN CELL VOLUME 81.1 fl (81.0-99.0); MEAN CORPUSCULAR HGB 26.3 pg (27.0-31.0); MEAN CORPUSCULAR HGB CONC 32.4 g/dl (33.0-37.0); MEAN PLATELET VOLUME 10.6 fl (9.6-12.3); MONO # 0.5 10*3/uL (0.1-1.0); MONO % 8.1 % (3.0-9.0); NEUT # 4.6 10*3/uL (2.3-7.9); NEUT % 70.7 % (47.0-73.0); PLATELET COUNT AUTOMATED 336 10*3/uL (130-400); RED BLOOD COUNT 4.49 10*6/uL (4.10-5.10); RED CELL DISTRI WIDTH 14.2 % (0-14.5); WHITE BLOOD COUNT 6.4 10*3/uL (4.8-10.8)
[2024-08-20 06:46] LABS: ALKALINE PHOSPHATASE 106 U/L (46-116); BUN 10 mg/dl (9-23); CHLORIDE 103 mmol/L (98-107); POTASSIUM 4.4 mmol/L (3.4-5.1); SGPT/ALT 28 U/L (5-49); TOTAL PROTEIN 6.8 gm/dL (6.0-8.0)
[2024-08-20 08:00] VITALS: BP 137/49
[2024-08-20] MEDS ORDERED: LEVOFLOXACIN 150 ML IV SCH (08:00)
[2024-08-20] MEDS ORDERED: methylPREDNISolone sod succ 1,000 MG/16 ML VIAL IM SCH (10:45)
[2024-08-20] MEDS ORDERED: GUAIFENESIN 600 MG TAB ER PO SCH (10:58)
[2024-08-20] MEDS ORDERED: INSULIN LISPRO 1 UNIT/0.01 ML SQ SCH (11:30)
[2024-08-20 12:00] VITALS: BP 138/75
[2024-08-20] MEDS ORDERED: methylPREDNISolone sod succ 40 MG VIAL IV SCH (12:00)
[2024-08-20 16:00] VITALS: BP 103/43
[2024-08-20 20:00] VITALS: BP 109/61
[2024-08-20] MEDS ORDERED: methylPREDNISolone sod succ 40 MG IV SCH (22:00)
[2024-08-21] VITALS: BP 137/68
[2024-08-21 08:00] VITALS: BP 137/60
[2024-08-21 12:00] VITALS: BP 138/61
[2024-08-21] MEDS ORDERED: Albuterol Sulf/Ipratropium 3 ML VIAL NEB SCH (15:15)
[2024-08-21 16:00] VITALS: BP 111/43
[2024-08-21 20:00] VITALS: BP 146/64
[2024-08-22] VITALS: BP 125/53
[2024-08-22 08:00] VITALS: BP 128/53
[2024-08-22] MEDS ORDERED: LEVOFLOXACIN 100 ML IV SCH (10:00)
[2024-08-22] MEDS ORDERED: LEVOFLOXACIN 50 ML IV SCH (11:00)
[2024-08-22 12:00] VITALS: BP 137/52
[2024-08-22 16:00] VITALS: BP 138/57
[2024-08-22 20:00] VITALS: BP 125/55
[2024-08-23] VITALS: BP 112/42
[2024-08-23] MEDS ORDERED: BENZONATATE 100 MG CAP PO PRN (04:40)
[2024-08-23 08:00] VITALS: BP 135/57
[2024-08-23 12:00] VITALS: BP 123/56
[2024-08-23 15:07] LABS: MYCOPLASMA PNEUMONIAE IGG <100 U/mL (0-99); MYCOPLASMA PNEUMONIAE IGM <770 U/mL (0-769)
[2024-08-23 16:00] VITALS: BP 139/56
[2024-08-23 21:00] VITALS: BP 144/64
[2024-08-24] VITALS: BP 139/50
[2024-08-24 08:00] VITALS: BP 139/67
[2024-08-24] MEDS ORDERED: LEVOFLOXACIN 500 MG TAB PO SCH (10:00)
[2024-08-24] MEDS ORDERED: LEVOFLOXACIN500 MG PO (10:43)
[2024-08-24] MEDS ORDERED: MUCUS RELIEF E600 MG PO (10:43)
[2024-08-24] MEDS ORDERED: PREDNISONE10 MG PO (10:43)
[2024-08-25] MEDS ORDERED: methylPREDNISolone sod succ 40 MG VIAL IV SCH (10:00)
== END 2024-08-24 13:04 | disposition home or self-care (01) | DRG 871 ==
LOC: ED 05:38 → 4E 07:21 → EDHOLD 07:21 → 4E 12:34
PROVIDERS: Internal Medicine; Internal Medicine Critical Care Medicine; Registered Nurse; ADMIT Internal Medicine; ATTEND Internal Medicine
DX: A41.9 Sepsis, unspecified organism (principal); J18.9 Pneumonia, unspecified organism; E87.1 Hypo-osmolality and hyponatremia; J45.901 Unspecified asthma with (acute) exacerbation; Z68.41 Body mass index [BMI] 40.0-44.9, adult; D50.9 Iron deficiency anemia, unspecified; E10.65 Type 1 diabetes mellitus with hyperglycemia; E28.2 Polycystic ovarian syndrome; Z20.822 Contact with and (suspected) exposure to COVID-19; E78.5 Hyperlipidemia, unspecified; E03.9 Hypothyroidism, unspecified; I10 Essential (primary) hypertension; E66.01 Morbid (severe) obesity due to excess calories; E83.42 Hypomagnesemia; Z98.51 Tubal ligation status; Z83.3 Family history of diabetes mellitus; Z88.8 Allergy status to other drugs, medicaments and biological substances; Z82.3 Family history of stroke; Z98.891 History of uterine scar from previous surgery; Z79.4 Long term (current) use of insulin; Z88.1 Allergy status to other antibiotic agents

== ENCOUNTER → 2025-06-04 | Outpatient (CLI) | payer OTHER ==
[~2025-06-04] MED LIST changes: +LEVOFLOXACIN500 MG PO; +LISINOPRIL10 M1 PO; +MUCUS RELIEF E600 MG PO; +ROSUVASTATIN CA20 MG PO
[2025-06-04 09:33] LABS: BUN 18 mg/dl (9-23); FREE T4 1.48 ng/dl (0.89-1.76); LDL CHOLESTEROL 88 mg/dL (9-159); SGPT/ALT 45 U/L (5-49)
== END ==
LOC: LAB 08:42
PROVIDERS: Student in an Organized Health Care Education/Training Program; ATTEND Internal Medicine Endocrinology, Diabetes & Metabolism
DX: E10.65 Type 1 diabetes mellitus with hyperglycemia (principal); E03.9 Hypothyroidism, unspecified

== ENCOUNTER 2025-07-08 10:51 | Observation (INO) | payer OTHER ==
[~2025-07-08] VITALS: Ht 160 cm; Wt 108.7 kg
[2025-07-08] MEDS ORDERED: Ondansetron Hydrochloride 4 MG/2 ML VIAL IV ONE (11:25)
[2025-07-08] MEDS ORDERED: SODIUM CHLORIDE 0.9% 500 ML IV ONE (11:25)
[2025-07-08 11:51] LABS: BASO # 0.1 10*3/uL (0.0-0.1); BASO % 0.5 % (0.0-1.0); EOS # 0.1 10*3/uL (0.0-0.4); EOS % 0.7 % (1.0-4.0); MEAN CELL VOLUME 82.7 fl (81.0-99.0); MEAN CORPUSCULAR HGB 26.2 pg (27.0-31.0); MEAN PLATELET VOLUME 10.3 fl (9.6-12.3); MONO # 0.7 10*3/uL (0.1-1.0); MONO % 6.4 % (3.0-9.0); NEUT # 8.4 10*3/uL (2.3-7.9); NEUT % 73.8 % (47.0-73.0); NUCLEATED RED BLOOD CELL 0.0 % (0.0-0.0); NUCLEATED RED BLOOD CELL 0.0 10*3/uL (0.0-0.0); PLATELET COUNT AUTOMATED 374 10*3/uL (130-400); RED CELL DISTRI WIDTH 13.8 % (0-14.5)
[2025-07-08 12:14] LABS: BUN 20 mg/dl (9-23); CPK 60 U/L (34-171); SGPT/ALT 32 U/L (5-49)
[2025-07-08 13:35] LABS: BILIRUBIN Negative (Negative); BLOOD Negative (Negative); CLARITY Cloudy (Clear); COLOR Yellow (Yellow); KETONE Trace (Negative); LEUKO ESTERASE 1+ (Negative); NITRITE Negative (Negative); PH 5.5 (4.5-8.0); SPECIFIC GRAVITY 1.025 (1.001-1.030); UROBILINOGEN 1.0 E.U./dl (0.0-1.0)
[2025-07-08 13:54] VITALS: BP 137/54
[2025-07-08 13:57] LABS: BACTERIA 4+; CALCIUM OXALATE CRYSTALS 4+; EPITHELIAL CELLS 21-30; WBC 31-40 wbc/hpf (0-5)
[2025-07-08] MEDS ORDERED: Ondansetron Hydrochloride 4 MG/2 ML VIAL IV PRN (15:45)
[2025-07-08] MEDS ORDERED: BISACODYL 5 MG TAB PO PRN (15:45)
[2025-07-08] MEDS ORDERED: ACETAMINOPHEN 325 MG TAB PO PRN (15:45)
[2025-07-08] MEDS ORDERED: ACETAMINOPHEN 650 MG SUPP R PRN (15:45)
[2025-07-08] MEDS ORDERED: BISACODYL 10 MG SUPP R PRN (15:45)
[2025-07-08] MEDS ORDERED: DEXTROSE 50% 25 GM/50 ML VIAL IV PRN (15:55)
[2025-07-08] MEDS ORDERED: SODIUM CHLORIDE 0.9% 1,000 ML IV ONE (16:20)
[2025-07-08] MEDS ORDERED: INSULIN LISPRO 1 UNIT/0.01 ML SQ SCH (16:30)
[2025-07-08 20:00] VITALS: BP 148/49
[2025-07-08 20:15] VITALS: BP 148/49
[2025-07-09] VITALS: BP 125/70
[2025-07-09 07:08] LABS: BUN 17 mg/dl (9-23)
[2025-07-09 08:00] VITALS: BP 142/57
[2025-07-09 12:00] VITALS: BP 127/56
== END 2025-07-09 13:47 | disposition home or self-care (01) ==
LOC: ED 10:51 → EDHOLD 14:00 → 5E 14:00
PROVIDERS: Emergency Medicine; ADMIT Internal Medicine; ATTEND Internal Medicine
DX: R55 Syncope and collapse (principal); E03.9 Hypothyroidism, unspecified; R82.71 Bacteriuria; E10.65 Type 1 diabetes mellitus with hyperglycemia; I10 Essential (primary) hypertension; E78.5 Hyperlipidemia, unspecified; E66.01 Morbid (severe) obesity due to excess calories; E55.9 Vitamin D deficiency, unspecified; Z79.899 Other long term (current) drug therapy

== ENCOUNTER 2025-07-13 10:41 | Inpatient (IN) | payer OTHER ==
[~2025-07-13] VITALS: Ht 160 cm; Wt 106.7 kg
[2025-07-13 10:57] VITALS: BP 140/57
[2025-07-13 11:33] LABS: BILIRUBIN 1+ (Negative); BLOOD 3+ (Negative); CLARITY Turbid (Clear); COLOR Orange (Yellow); KETONE Negative (Negative); LEUKO ESTERASE 3+ (Negative); NITRITE Positive (Negative); PH 5.0 (4.5-8.0); SPECIFIC GRAVITY 1.020 (1.001-1.030); UROBILINOGEN 1.0 E.U./dl (0.0-1.0)
[2025-07-13 11:47] LABS: WBC TNTC wbc/hpf (0-5)
[2025-07-13 12:08] LABS: BASO # 0.0 10*3/uL (0.0-0.1); BASO % 0.4 % (0.0-1.0); EOS # 0.2 10*3/uL (0.0-0.4); EOS % 1.4 % (1.0-4.0); MEAN CELL VOLUME 83.2 fl (81.0-99.0); MEAN CORPUSCULAR HGB 25.8 pg (27.0-31.0); MEAN PLATELET VOLUME 10.4 fl (9.6-12.3); MONO # 0.7 10*3/uL (0.1-1.0); MONO % 6.6 % (3.0-9.0); NEUT # 8.0 10*3/uL (2.3-7.9); NEUT % 73.2 % (47.0-73.0); NUCLEATED RED BLOOD CELL 0.0 % (0.0-0.0); NUCLEATED RED BLOOD CELL 0.0 10*3/uL (0.0-0.0); PLATELET COUNT AUTOMATED 360 10*3/uL (130-400); RED CELL DISTRI WIDTH 14.2 % (0-14.5)
[2025-07-13 12:30] LABS: BUN 16 mg/dl (9-23)
[2025-07-13 14:20] VITALS: BP 156/68
[2025-07-13] MEDS ORDERED: ACETAMINOPHEN 325 MG TAB PO PRN (15:00)
[2025-07-13] MEDS ORDERED: ACETAMINOPHEN 650 MG SUPP R PRN (15:00)
[2025-07-13] MEDS ORDERED: Ondansetron Hydrochloride 4 MG/2 ML VIAL IV PRN (15:00)
[2025-07-13] MEDS ORDERED: INSULIN PUMP (PT'S PUMP FROM HOME) SC SCH (15:15)
[2025-07-13 20:00] VITALS: BP 139/41
[2025-07-14] VITALS: BP 133/60
[2025-07-14] MEDS ORDERED: Vancomycin Hydrochloride 1,000 MG in SODIUM CHLORIDE 0.9% 250 ML IV SCH (02:00)
[2025-07-14 05:58] LABS: BASO # 0.0 10*3/uL (0.0-0.1); BASO % 0.3 % (0.0-1.0); EOS # 0.2 10*3/uL (0.0-0.4); EOS % 1.5 % (1.0-4.0); MEAN CELL VOLUME 83.3 fl (81.0-99.0); MEAN CORPUSCULAR HGB 26.0 pg (27.0-31.0); MEAN PLATELET VOLUME 10.6 fl (9.6-12.3); MONO # 0.8 10*3/uL (0.1-1.0); MONO % 7.2 % (3.0-9.0); NEUT # 6.8 10*3/uL (2.3-7.9); NEUT % 61.4 % (47.0-73.0); NUCLEATED RED BLOOD CELL 0.0 % (0.0-0.0); NUCLEATED RED BLOOD CELL 0.0 10*3/uL (0.0-0.0); PLATELET COUNT AUTOMATED 346 10*3/uL (130-400); RED CELL DISTRI WIDTH 14.2 % (0-14.5)
[2025-07-14 06:16] LABS: BUN 18 mg/dl (9-23); SGPT/ALT 49 U/L (5-49)
[2025-07-14 08:00] VITALS: BP 142/65
[2025-07-14 12:00] VITALS: BP 142/59
[2025-07-14] MEDS ORDERED: CIPROFLOXACIN 200 ML IV SCH (12:30)
[2025-07-14 16:00] VITALS: BP 154/64
[2025-07-14 20:00] VITALS: BP 147/59
[2025-07-15] VITALS: BP 142/54
[2025-07-15 05:57] LABS: BASO # 0.1 10*3/uL (0.0-0.1); BASO % 0.5 % (0.0-1.0); EOS # 0.2 10*3/uL (0.0-0.4); EOS % 2.0 % (1.0-4.0); MEAN CELL VOLUME 83.1 fl (81.0-99.0); MEAN CORPUSCULAR HGB 26.4 pg (27.0-31.0); MEAN PLATELET VOLUME 10.8 fl (9.6-12.3); MONO # 0.7 10*3/uL (0.1-1.0); MONO % 7.8 % (3.0-9.0); NEUT # 5.4 10*3/uL (2.3-7.9); NEUT % 58.9 % (47.0-73.0); NUCLEATED RED BLOOD CELL 0.0 % (0.0-0.0); NUCLEATED RED BLOOD CELL 0.0 10*3/uL (0.0-0.0); PLATELET COUNT AUTOMATED 340 10*3/uL (130-400); RED CELL DISTRI WIDTH 14.0 % (0-14.5)
[2025-07-15 06:39] LABS: BUN 17 mg/dl (9-23)
[2025-07-15 08:00] VITALS: BP 147/56
[2025-07-15] MEDS ORDERED: CIPRO500 MG PO (11:39)
== END 2025-07-15 13:00 | disposition home or self-care (01) | DRG 690 ==
LOC: ED 10:41 → EDHOLD 13:05 → 4E 13:05
PROVIDERS: Nurse Practitioner Family; ADMIT Internal Medicine; ATTEND Internal Medicine
DX: N12 Tubulo-interstitial nephritis, not specified as acute or chronic (principal); E11.65 Type 2 diabetes mellitus with hyperglycemia; N30.90 Cystitis, unspecified without hematuria; E03.9 Hypothyroidism, unspecified; E66.01 Morbid (severe) obesity due to excess calories; E11.42 Type 2 diabetes mellitus with diabetic polyneuropathy; E78.2 Mixed hyperlipidemia; R31.21 Asymptomatic microscopic hematuria; B96.20 Unspecified Escherichia coli [E. coli] as the cause of diseases classified elsewhere; Z88.8 Allergy status to other drugs, medicaments and biological substances; Z98.51 Tubal ligation status; Z83.3 Family history of diabetes mellitus

== ENCOUNTER → 2025-08-15 | Outpatient (CLI) | payer OTHER | END | disposition home or self-care (01) | LOC: MAMMO 08-04 10:30 | PROVIDERS: ATTEND Nurse Practitioner Family | DX: Z12.31 Encounter for screening mammogram for malignant neoplasm of breast (principal) ==

== ENCOUNTER → 2025-09-01 | Outpatient (CLI) | payer OTHER ==
[~2025-09-01] MED LIST changes: +ZYVOX600 MG PO
[2025-09-01 10:39] LABS: BUN 13 mg/dl (9-23); FREE T4 1.62 ng/dl (0.89-1.76); LDL CHOLESTEROL 96 mg/dL (9-159); SGPT/ALT 22 U/L (5-49)
== END | disposition home or self-care (01) ==
LOC: LAB 09:42
PROVIDERS: ATTEND Internal Medicine Endocrinology, Diabetes & Metabolism
DX: E10.65 Type 1 diabetes mellitus with hyperglycemia (principal); E03.9 Hypothyroidism, unspecified; E78.5 Hyperlipidemia, unspecified

== ENCOUNTER → 2025-09-05 | Day surgery (SDC) | payer OTHER ==
[~2025-09-05] VITALS: Ht 160 cm; Wt 107.0 kg
[~2025-09-05] MED LIST changes: +Lactated Ringer's Solution 1,000 ML IV ONE; +Lidocaine Hydrochloride 5 ML VIAL IV ONE; +Ondansetron Hydrochloride 4 MG/2 ML VIAL IV ONE; +PROPOFOL 200 MG/20 ML VIAL IV ONE; +ePHEDrine Sulfate 25 MG/5 ML SYRINGE IV ONE
[2025-09-05 06:30] VITALS: BP 195/74
[2025-09-05 08:00] VITALS: BP 122/43
[2025-09-05 08:15] VITALS: BP 113/45
[2025-09-05 08:30] VITALS: BP 129/61
== END | disposition home or self-care (01) ==
LOC: SDC 09-01 08:00
PROVIDERS: ATTEND Surgery
DX: Z12.11 Encounter for screening for malignant neoplasm of colon (principal); K63.5 Polyp of colon; K64.8 Other hemorrhoids; E10.9 Type 1 diabetes mellitus without complications; E78.00 Pure hypercholesterolemia, unspecified; I10 Essential (primary) hypertension; J45.909 Unspecified asthma, uncomplicated; E07.9 Disorder of thyroid, unspecified; F32.A Depression, unspecified; Z96.41 Presence of insulin pump (external) (internal); Z98.890 Other specified postprocedural states; Z98.51 Tubal ligation status; Z88.8 Allergy status to other drugs, medicaments and biological substances; Z90.89 Acquired absence of other organs; Z98.891 History of uterine scar from previous surgery; Z79.899 Other long term (current) drug therapy

== ENCOUNTER 2025-10-16 12:43 | Inpatient (IN) | payer OTHER ==
[~2025-10-16] VITALS: Ht 160 cm; Wt 106.6 kg
[~2025-10-16 12:43] MED LIST changes: -Lactated Ringer's Solution 1,000 ML IV ONE; -Lidocaine Hydrochloride 5 ML VIAL IV ONE; -Ondansetron Hydrochloride 4 MG/2 ML VIAL IV ONE; -PROPOFOL 200 MG/20 ML VIAL IV ONE; -ePHEDrine Sulfate 25 MG/5 ML SYRINGE IV ONE
[2025-10-16 13:05] VITALS: BP 138/47
[2025-10-16 13:21] LABS: BASO # 0.0 10*3/uL (0.0-0.1); BASO % 0.4 % (0.0-1.0); EOS # 0.2 10*3/uL (0.0-0.4); EOS % 2.0 % (1.0-4.0); MEAN CELL VOLUME 82.3 fl (81.0-99.0); MEAN CORPUSCULAR HGB 26.5 pg (27.0-31.0); MEAN PLATELET VOLUME 10.4 fl (9.6-12.3); MONO # 0.5 10*3/uL (0.1-1.0); MONO % 6.9 % (3.0-9.0); NEUT # 4.7 10*3/uL (2.3-7.9); NEUT % 60.8 % (47.0-73.0); NUCLEATED RED BLOOD CELL 0.0 % (0.0-0.0); NUCLEATED RED BLOOD CELL 0.0 10*3/uL (0.0-0.0); PLATELET COUNT AUTOMATED 408 10*3/uL (130-400); RED CELL DISTRI WIDTH 13.6 % (0-14.5)
[2025-10-16] MEDS ORDERED: ASPIRIN, CHEWABLE 81 MG TAB PO ONE (13:25)
[2025-10-16 13:42] LABS: BUN 16 mg/dl (9-23); SGPT/ALT 23 U/L (5-49)
[2025-10-16 14:09] LABS: BILIRUBIN Negative (Negative); BLOOD 3+ (Negative); CLARITY Cloudy (Clear); COLOR Yellow (Yellow); KETONE Trace (Negative); LEUKO ESTERASE Negative (Negative); NITRITE Negative (Negative); PH 5.5 (4.5-8.0); SPECIFIC GRAVITY >= 1.030 (1.001-1.030); UROBILINOGEN 1.0 E.U./dl (0.0-1.0)
[2025-10-16 14:18] LABS: EPITHELIAL CELLS 21-30; RBC 51-100 rbc/hpf (0-2)
[2025-10-16 14:19] LABS: BACTERIA 2+; MUCOUS 1+; WBC 0-2 wbc/hpf (0-5)
[2025-10-16 14:26] LABS: FREE T4 1.52 ng/dl (0.89-1.76)
[2025-10-16] MEDS ORDERED: Dicyclomine Hydrochloride 20 MG/10 ML OSYR PO STA (14:54)
[2025-10-16] MEDS ORDERED: MG-AL HYDROXIDE/SIMETICONE 30 ML UDC PO STA (14:54)
[2025-10-16 17:09] VITALS: BP 149/56
[2025-10-16] MEDS ORDERED: VITAMIN D-40010 MCG PO (17:23)
[2025-10-16] MEDS ORDERED: Ondansetron Hydrochloride 4 MG/2 ML VIAL IV PRN (17:30)
[2025-10-16] MEDS ORDERED: BISACODYL 10 MG SUPP R PRN (17:30)
[2025-10-16] MEDS ORDERED: ACETAMINOPHEN 325 MG TAB PO PRN (17:30)
[2025-10-16] MEDS ORDERED: BISACODYL 5 MG TAB PO PRN (17:30)
[2025-10-16] MEDS ORDERED: TEMAZEPAM 15 MG CAP PO PRN (17:30)
[2025-10-16] MEDS ORDERED: DEXTROSE 50% 25 GM/50 ML VIAL IV PRN (17:35)
[2025-10-16 17:55] VITALS: BP 145/51
[2025-10-16 20:00] VITALS: BP 153/52
[2025-10-16] MEDS ORDERED: INSULIN LISPRO 1 UNIT/0.01 ML SQ SCH (22:00)
[2025-10-17] VITALS: BP 132/43; BP 132/48
[2025-10-17] MEDS ORDERED: Regadenoson 0.4 MG/5 ML SYR IV ONE (06:27)
[2025-10-17 06:30] LABS: ACT PARTIAL THROMBO TIME 24.1 SECONDS (20.0-32.1)
[2025-10-17 06:35] LABS: BASO # 0.1 10*3/uL (0.0-0.1); BASO % 0.5 % (0.0-1.0); EOS # 0.2 10*3/uL (0.0-0.4); EOS % 1.7 % (1.0-4.0); MEAN CELL VOLUME 84.2 fl (81.0-99.0); MEAN CORPUSCULAR HGB 26.1 pg (27.0-31.0); MEAN PLATELET VOLUME 10.8 fl (9.6-12.3); MONO # 0.6 10*3/uL (0.1-1.0); MONO % 6.0 % (3.0-9.0); NEUT # 5.6 10*3/uL (2.3-7.9); NEUT % 59.6 % (47.0-73.0); NUCLEATED RED BLOOD CELL 0.0 % (0.0-0.0); NUCLEATED RED BLOOD CELL 0.0 10*3/uL (0.0-0.0); PLATELET COUNT AUTOMATED 411 10*3/uL (130-400); RED CELL DISTRI WIDTH 13.6 % (0-14.5)
[2025-10-17 07:00] LABS: BUN 19 mg/dl (9-23); FREE T4 1.46 ng/dl (0.89-1.76); LDL CHOLESTEROL 98 mg/dL (9-159); SGPT/ALT 21 U/L (5-49)
[2025-10-17 08:00] VITALS: BP 151/48
[2025-10-17] MEDS ORDERED: ASPIRIN ENTERIC COATED 81 MG TAB PO SCH (11:45)
[2025-10-17 12:00] VITALS: BP 153/64
[2025-10-17] MEDS ORDERED: ASPIRIN ADULT L81 M2 PO (12:51)
[2025-10-17] MEDS ORDERED: ZESTRIL10 MG PO (12:51)
== END 2025-10-17 13:27 | disposition home or self-care (01) | DRG 313 ==
LOC: ED 12:43 → 4E 17:19 → EDHOLD 17:19 → 4E 17:20
PROVIDERS: Nurse Practitioner; ADMIT Family Medicine; ATTEND Family Medicine
PROC: 4A02XM4 Measurement of Cardiac Total Activity, External Approach (ICD-10-PCS; principal; 2025-10-17)
PROC: 3E073KZ Introduction of Other Diagnostic Substance into Coronary Artery, Percutaneous Approach (ICD-10-PCS; 2025-10-17)
DX: R07.89 Other chest pain (principal); Z68.41 Body mass index [BMI] 40.0-44.9, adult; R07.9 Chest pain, unspecified; R82.71 Bacteriuria; I10 Essential (primary) hypertension; E78.5 Hyperlipidemia, unspecified; E66.01 Morbid (severe) obesity due to excess calories; D75.839 Thrombocytosis, unspecified; E10.65 Type 1 diabetes mellitus with hyperglycemia; E28.2 Polycystic ovarian syndrome; E55.9 Vitamin D deficiency, unspecified; H91.90 Unspecified hearing loss, unspecified ear; Z88.8 Allergy status to other drugs, medicaments and biological substances; Z98.51 Tubal ligation status; Z83.3 Family history of diabetes mellitus; Z82.3 Family history of stroke